=== PATIENT | male | born 1980 | race African-American/Black ===

== ENCOUNTER 2019-09-06 16:44 | Emergency (ER) | payer BC ==
[~2019-09-06 16:44] MED LIST: CIPRO HC AS; FLEXERIL OR; LORTAB5 OR; MOTRIN400 MG PO; NO HOME MEDS; ULTRAM50 M1 PO
[2019-09-06] MEDS ORDERED: BACTRIM DS1 TAB PO (18:11)
[2019-09-06 18:20] VITALS: BP 131/83
== END 2019-09-06 18:20 | disposition home or self-care (01) | DRG 603 ==
LOC: ED 16:44
DX: L03.116 Cellulitis of left lower limb (principal)

== ENCOUNTER 2019-09-11 11:07 | Inpatient (IN) | payer BC ==
[~2019-09-11] VITALS: Ht 195.6 cm; Wt 231.0 kg
[~2019-09-11 11:07] MED LIST changes: +BACTRIM DS1 TAB PO
--- NOTE | 2019-09-11 11:15 | NUR ---
AMBULATED TO ROOM WITH STEADY GAIT FOR BEDSIDE TRIAGE
--- NOTE | 2019-09-11 11:34 | NUR ---
MD INTO SEE PATIENT PLAN OF CARE DISCUSSED INCLUDING PROBABLE ADMISSION PT VERBALIZES UNDERSTANDING AND AGREEANCE
[2019-09-11 12:15] LABS: HEMATOCRIT 46.5 % (39.0-50.0); HEMOGLOBIN 15.2 g/dl (14.0-18.0); IMMATURE GRANULOCYTES 0.3 % (0.0-5.0); MEAN CELL VOLUME 88.6 fL CALC (80.0-100.0); MEAN CORPUSCULAR HGB CONC 32.7 g/dL CAL (32.0-36.0); NEUT# 3.74 thou/uL (1.82-7.42); RED BLOOD COUNT 5.25 mill/uL (4.70-6.10); RED CELL DISTRI WIDTH 13.5 % (11.5-15.5)
--- NOTE | 2019-09-11 12:30 | NUR ---
PT RESTING ON STRETCHER; NO S/S OF DISTRESS NOTED; VSS; PT ADVISED OF CONTINUED WAIT TIME; WILL CONTINUE TO MONITOR
[2019-09-11 12:34] LABS: ANION GAP 15 (6-22 (CALC)); BUN 15 mg/dL (9-20); BUN/CREATININE RATIO 10 (12-20 (CALC)); CARBON DIOXIDE 23 mmol/l (22-30); CHLORIDE 103 mmol/l (95-108); CREATININE 1.5 mg/dL (0.7-1.3); GFR 53 ML/MIN (>=60 (CALC)); GFR FOR AFR.AMER. > 60 ML/MIN (>=60 (CALC)); POTASSIUM 4.5 mmol/l (3.5-5.1); SODIUM 137 mmol/l (137-146)
--- NOTE | 2019-09-11 13:19 | NUR ---
DR TAYLOR AT [facility] TO DISCUSS POC AND PLAN TO ADMIT
--- NOTE | 2019-09-11 14:00 | NUR ---
PT RESTING ON STRETCHER; NO S/S OF DISTRESS NOTED; VSS; ADVISED OF CONTINUED WAIT TIME; WILL CONTINUE TO MONITOR
--- NOTE | 2019-09-11 14:35 | NUR ---
PT ARRIVED TO UNIT VIA WHEELCHAIR WITH ER STAFF; AMBULATED TO BED WITH STEADY GAIT. ALERT AND ORIENTED. DENIES PAIN; REPORTS THAT MEDICATION GIVEN IN ED WAS EFFECTIVE FOR PAIN. LEFT CALF REDDENED WITH SWELLING, WARMTH, AND FIRMNESS. GOOD PEDAL PULSES. RESPIRATIONS EVEN AND UNLABORED ON ROOM AIR. VSS. AFEBRILE. VANCO INFUSING UPON ARRIVAL; IV SITE APPEARS HEALTHY TO LAC. ORIENTED TO ROOM AND CALL LIGHT SYSTEM. PLAN OF CARE DISCUSSED. PT ENCOURAGED TO VERBALIZE CONCERNS. STATES UNDERSTANDING. SAFETY MEASURES IN PLACE. CALL LIGHT WITHIN REACH.
--- NOTE | 2019-09-11 14:35 | NUR ---
Admission Note Report Given to: CUAUHTEMOC COLLIER Transported by: X Wheelchair Stretcher Transported with: X Nurse Transporter X Patent IV O2 Applications Intern Location: ICU X MS2
[2019-09-11 14:45] VITALS: BP 127/82
[2019-09-11 15:03] LABS: URINE BILIRUBIN - DIPSTICK NEGATIVE (NEGATIVE); URINE BLOOD DIPSTICK NEGATIVE (NEGATIVE); URINE COLOR YELLOW; URINE GLUCOSE - DIPSTICK NEGATIVE (NEGATIVE); URINE KETONE TRACE mg/dL (NEGATIVE); URINE LEUK ESTERASE NEGATIVE (NEGATIVE); URINE NITRITE - DIPSTICK NEGATIVE (Negative); URINE PH 5.5 (4.5-8.0); URINE PROTEIN - DIPSTICK TRACE mg/dL (NEG-TRACE); URINE SPECIFIC GRAVITY >=1.030
--- NOTE | 2019-09-11 16:17 | NUR ---
S: SAUD HOLLAND is a 38 M who presents with LEFT LEG CELLULITIS. He has a history of LEFT LEG REDNESS. All medications in patient's chart were reviewed. O: VS: BP 127/82, P 70, RR 20,T 97.2 W 230kg, HT 77IN, Scr= 1.5 ,CrCl= 100ml/min A: Blood culture is pending P: Patient is on UNASYN 3GRAMS Q6H Vancomycin ordered for pharmacy to dose. Start Vancomycin 1500MG IV Q8H. Vancomycin trough is drawn before the 4th dose on 09/12/19 @2130. Vancomycin goal trough is between 10-15 mcg/ml. Pharmacy will follow and or advise on antibiotics use as needed. NOA ALBARRAN PHARMD
--- NOTE | 2019-09-11 17:17 | NUR ---
PT RESTING IN BED SEMI FOWLERS WATCHING TV; ALERT AND ORIENTED. IV FLUIDS INFUSING WITHOUT DIFFICULTY; IV SITE APPEARS HEALTHY. NO REQUESTS OR CONCERNS AT THIS TIME.
[2019-09-11 18:32] VITALS: BP 119/62
--- NOTE | 2019-09-11 19:30 | NUR ---
PT. SITTING UP IN BED WITH NO DISTRESS NOTED; DENIES NEEDS/PAIN. LLE WITH REDNESS AND SWELLING NOTED. PEDAL PULSES BILATERALLY PRESENT. CIRCUMFERENCE OF CALF 62CM; WILL CONTINUE TO MONITOR. ASSESSMENT COMPLETED. IV SITE PATENT AND INFUSING ORDERED IVF WELL. UPDATED ON POC AND VERBALIZES UNDERSTANDING. ENCOURAGED TO CALL FOR ANY NEEDS. CALL LIGHT IS IN REACH.
--- NOTE | 2019-09-11 21:08 | NUR ---
PT. SITTING UP IN THE RECLINER WITH NO DISTRESS NOTED. DENIES NEEDS/PAIN. ICE CHIPS PROVIDED. SCHEDULED LOVENOX GIVEN.
--- NOTE | 2019-09-12 00:08 | NUR ---
PT. RESTING IN BED WITH NO DISTRESS NOTED; DENIES NEEDS/PAIN. IV SITE REMAINS PATENT AND SCHED ANTIBIOTIC HUNG. PROVIDED WITH EXTRA PILLOW. ENCOURAGED TO CALL FOR ANY NEEDS.
[2019-09-12 03:58] VITALS: BP 125/70
--- NOTE | 2019-09-12 04:00 | NUR ---
RESTING IN BED WITH NO DISTRESS NOTED. RESP. EVEN AND UNLABORED. CALL LIGHT IS IN REACH.
--- NOTE | 2019-09-12 05:16 | NUR ---
sched meds given. denies needs/pain. call light is in reach.
[2019-09-12 06:02] LABS: MEAN CELL VOLUME 90.3 fL CALC (80.0-100.0); MEAN CORPUSCULAR HGB 28.7 pG CALC (26.0-32.0); MEAN CORPUSCULAR HGB CONC 31.8 g/dL CAL (32.0-36.0); RED BLOOD COUNT 4.42 mill/uL (4.70-6.10); RED CELL DISTRI WIDTH 13.4 % (11.5-15.5)
[2019-09-12 06:17] LABS: CHOLESTEROL HDL RATIO 2.8 (<4.4 (CALC)); MAGNESIUM 2.1 mg/dL (1.6-2.3)
[2019-09-12 06:18] LABS: ALBUMIN 3.3 g/dL (3.2-5.0); ALKALINE PHOSPHATASE 45 u/l (38-126); ANION GAP 8 (6-22 (CALC)); BILIRUBIN, TOTAL 0.6 mg/dL (0.0-1.4); BUN 16 mg/dL (9-20); BUN/CREATININE RATIO 12 (12-20 (CALC)); CARBON DIOXIDE 27 mmol/l (22-30); CHLORIDE 106 mmol/l (95-108); CREATININE 1.4 mg/dL (0.7-1.3); GFR 57 ML/MIN (>=60 (CALC)); GFR FOR AFR.AMER. > 60 ML/MIN (>=60 (CALC)); SGOT/AST 14 u/l (17-59); SODIUM 137 mmol/l (137-146); TOTAL PROTEIN 6.6 g/dL (6.3-8.2)
[2019-09-12 06:20] LABS: HEMATOCRIT 39.9 % (39.0-50.0); HEMOGLOBIN 12.7 g/dl (14.0-18.0)
--- NOTE | 2019-09-12 07:15 | NUR ---
CHNAGE OF SHIFT REPORT RECEIVED FROM CUAUHTEMOC VIEIRA. PT SITTING UP IN BED. PT DENIES ANT NEW CONCERNS
--- NOTE | 2019-09-12 08:00 | NUR ---
PT REQUESTING A SHOWER. PT DISCONECTED FROM IV. IV SITE COVER PLACED ON. PT IS ABLE TO MAKE NEEDS KNOWN. PT DENIES ANY NEW CONCERNS. CALL LIGHT WITHIN EASY REACH. CAFE OR RESTAURANT MANAGER WILL CONTIUE TO MONITOR
[2019-09-12 08:06] VITALS: BP 125/79
--- NOTE | 2019-09-12 12:00 | NUR ---
PT CONTINUES ON ANTIBIOTIC FOR CELULITIS. SAMPLER FIRST WILL CONTINUE TO ROSALINDA
[2019-09-12 16:00] VITALS: BP 127/79
--- NOTE | 2019-09-12 16:11 | NUR ---
PT WAS GIVEN MOTRIN FOR COMPLAINT OF PAIN IN CALF. WEIGHTS AND MEASURES SEALER WILL CONTINUE TO MONITOR
[2019-09-12 18:45] VITALS: BP 148/89
--- NOTE | 2019-09-12 20:05 | NUR ---
ASSESSMENT COMPLETED. UPDATED WITH POC; VERBALIZES UNDERSTANDING. DENIES PAIN AT THIS TIME. CIRCUMFERENCE OF LEFT CALF CELLULITIS MEASURING 68CM AND REDNESS AND FIRMNESS NOTED. PEDAL PULSES PRESENT AND STRONG. IV SITE PATENT AND INFUSING ORDERED IVF WELL. ENCOURAGED TO CALL FOR ANY NEEDS. CALL LIGHT IS IN REACH. WILL CONTINUE TO MONITOR.
--- NOTE | 2019-09-12 22:51 | NUR ---
AWAITING VANCO TROUGH RESULTS MEDI-TECH WAS DOWN.
--- NOTE | 2019-09-12 23:10 | NUR ---
VANCOMYCIN HUNG; DENIES NEEDS/PAIN. ENCOURAGED TO CALL FOR ANY NEEDS. CALL LIGHT IS IN REACH.
[2019-09-13 03:49] VITALS: BP 126/80
--- NOTE | 2019-09-13 03:50 | NUR ---
RESTING IN BED WITH NO DISTRESS NOTED; DENIES NEEDS. CALL LIGHT IS IN REACH.
--- NOTE | 2019-09-13 05:35 | NUR ---
PT. RESTING IN BED WITH NO DISTRESS NOTED; DENIES NEEDS/PAIN. PT. REPORTS STILL NO BM AND OFFERED A LAXATIVE AND DECLINES. CALL LIGHT IS IN REACH.
--- NOTE | 2019-09-13 07:15 | NUR ---
CHANGE OF SHIFT REPORT RECEIVED FROM CUAUHTEMOC VIEIRA. PT IN SEMI-PETTIT POSITION. PT DENIES ANY DISCOMFORT. TEMP AT 99.0(TEMPORAL). ROOM IS WARM AND PT HAD BLANKETS ON. AIR CONDITIONER TURNED DOWN. DRUM PRINTER WILL CONTINUE TO MONITOR
[2019-09-13 07:29] VITALS: BP 131/78
--- NOTE | 2019-09-13 07:44 | NUR ---
1 BOTTLE OF 2 SETS GROWING GRAM POSITIVE COCCI. PT IS CURRENTLY RECEIVING UNASYN AND VANCOMYCIN. NO CHANGES RECOMMENDED UNTIL FINAL C+S COMPLETE
--- NOTE | 2019-09-13 12:38 | NUR ---
PT'S IV LEAKING. IV INSERTION ATTEMPTED X 2. ENGINEERING TEST SPECIALIST WILL REATTEMPT WHEN VEIN FINDER AVAILABLE.
--- NOTE | 2019-09-13 12:44 | NUR ---
Vancomycin ordered for pharmacy to dose. PT is a 38 yr old M who presentS with cellulitis of the left leg. PT also on Unasyn 3gm IV Q6H. Pt is receiving vancomycin 1,500 mg IV Q8H with goal trough of 10-15 mcg/ml. Trough on 09/12/19 @ 2200: 13mcg/mL. Allergies: NKDA Continue vancomycin 1,500 mg IV Q8H. Draw trough 30 minutes prior to 4th dose on 09/13/19 at 2130. Pharmacy will continue to follow.
--- NOTE | 2019-09-13 14:40 | NUR ---
NE IV #20 ON RAC. ANTIBIOTICS RUNNING AT THIS TIME
--- NOTE | 2019-09-13 15:54 | NUR ---
PT RESTING COMFORTABLY IN BED. PT CONTINUES ON ANTIBITICS FOR LEFT CALF CELULITIS. BUSINESS WRITER WILL CONTINUE TO MONITOR
--- NOTE | 2019-09-13 15:57 | NUR ---
CALLED DR. PEREIRA REGARDING CONSULTATION ON THIS PT.
[2019-09-13 16:20] VITALS: BP 142/85
[2019-09-13 18:56] VITALS: BP 150/90
--- NOTE | 2019-09-13 19:47 | NUR ---
REPORT FROM DONNA POSADAS. PT RESTING IN BED. NO APPARENT DISTRESS NOTED. PT DENIES ANY PAIN OR DISCOMFORT AT THIS TIME. LEFT LEG ELEVATED ON PILLOWS. LEFT LEG WARM TO TOUCH WITH EDEMA NOTED. DISCUSSED POC. PT VERBALIZED UNDERSTANDING. CALL LIGHT WITHIN REACH. WILL CONTINUE TO MONITOR.
--- NOTE | 2019-09-13 22:40 | NUR ---
VANCO TROUGH RESULTS BACK AT 14, VANCO STARTED. SLEEPING PILL ADMINISTERED UPON REQUEST. PT DENIES ANY CURRENT WANTS OR NEEDS. PT SITTING UP EATING CEREAL OUT OF BAG. CALL LIGHT WITHIN REACH. WILL CONTINUE TO MONITOR.
--- NOTE | 2019-09-14 02:31 | NUR ---
PT RESTING IN BED WITH EYES CLOSED. NO APPARENT DISTRESS NOTED. LLE ELEVATED ON PILLOWS. CALL LIGHT WITHIN REACH. WILL CONTINUE TO MONITOR.
[2019-09-14 03:43] VITALS: BP 133/84
[2019-09-14 08:00] VITALS: BP 134/80
--- NOTE | 2019-09-14 09:00 | NUR ---
PT IS AWAKE, ALERT, ORIENTED X 3, AMBULATORY. PT WITH SWELLING NOTED TO LEFT CALF AREA, NOTED HARD TEXTURE. PT IS AMBULATORY WITHOUT DIFFICULTY IN SPITE OF BEING 500 POUNDS. LUNGS CLEAR, RA.
--- NOTE | 2019-09-14 13:00 | NUR ---
PT SEEN BY DR PEREIRA THIS MORNING, WILL HAVE I&D LEFT CALF TOMORROW. PT ABLE TO AMBULATE IN HALLWAY WITHOUT DIFFICULTY.
--- NOTE | 2019-09-14 15:25 | NUR ---
S: SAUD HOLLAND is a 38 M who presents with CELLULITIS He has a history of REDNESS LEFT LEG,DM2. All medications in patient's chart were reviewed. O: VS: BP 134/80 , P 74, RR18,T 97.3 W 231kg, HT 77IN, Scr= 1.4,CrCl= >100ml/min A: Blood culture is pending Urine culture is pending P: Patient is on UNASYN 3 GRAMS. Vancomycin ordered for pharmacy to dose. Start Vancomycin 1500MG Q8H. Vancomycin trough is drawn before the dose on 09/16/19 @0530 Vancomycin goal trough is between 15-20 mcg/ml. Pharmacy will follow and or advise on antibiotics use as needed. NOA SHAHRMD
[2019-09-14 16:00] VITALS: BP 132/76
--- NOTE | 2019-09-14 19:05 | NUR ---
REPORT FROM ANTONY POSADAS. PT SITTING UP IN BED WATCHING TV. NO APPARENT DISTRESS NOTED. LLE ELEVATED ON PILLOWS. PT DENIES ANY PAIN OR DISCOMFORT. DISCUSSED POC AND NPO AFTER MIDNIGHT. PT VERBALIZED UNDERSTANDING. CUP OF ICE PROVIDED. CALL LIGHT WITHIN REACH. WILL CONTINUE TO MONITOR.
[2019-09-14 19:23] VITALS: BP 140/75
--- NOTE | 2019-09-14 21:54 | NUR ---
PT MEDICATED ORDERED. SLEEPING PILL ADMINISTERED UPON REQUEST. PT DENIES ANY OTHER WANTS OR NEEDS. CALL LIGHT WITHIN REACH. WILL CONTINUE TO MONTIOR.
[2019-09-15] VITALS (12 sets, daily range): BP systolic 122–172; BP diastolic 69–102
--- NOTE | 2019-09-15 01:14 | NUR ---
PT RESTING IN BED WITH EYES CLOSED. NO APPARENT DISTRESS NOTED. CALL LIGHT WITHIN REACH. WILL CONTINUE TO MONITOR.
--- NOTE | 2019-09-15 05:26 | NUR ---
PT RESTING IN BED WITH EYES CLOSED. NO APPARENT DISTRESS NOTED. CALL LIGHT WITHIN REACH. WILL CONTINUE TO MONITOR.
--- NOTE | 2019-09-15 09:00 | NUR ---
PT SEEN AWAKE, ALERT, ORIENTED X 3. LEFT CALF WITH TENDERNESS PER AREA OF SWELLING. PT HAS BEEN NPO [place], WILL HAVE I&D WITH DR PEREIRA THIS MORNING. NO COMPLAINT OF PAIN, NO SHORTNESS OF BREATH.
--- NOTE | 2019-09-15 13:00 | NUR ---
PT HAS RETURNED FROM SURGERY TO LEFT CALF. EASTON BANDAGE COVERS SITE. PT PROVIDED PAIN MED ORDERED, MORE COMFORTABLE NOW.
--- NOTE | 2019-09-15 18:34 | NUR ---
DRESSING CHANGE WAS DONE TO LEFT CALF, PT WITH EXTREME DISCOMFORT. WOUND WAS REPACKED, EASTON BANDAGE APPLIED, PT MUCH BETTER NOW THAT IT IS OVER. PT WILL ADVISE WHEN HE WANTS PAIN MED.
--- NOTE | 2019-09-15 19:10 | NUR ---
REPORT FROM ANTONY POSADAS. PT SITTING UP IN BED WATCHING TV. NO APPARENT DISTRESS NOTED. LLE ELEVATED ON PILLOWS. C/O PAIN 4-10 IN LLE. EASTON BANDAGE IN PLACE, CDI. DISCUSSED POC AND DRESSING CHANGES. PT VERBALIZED UNDERSTANDING. WILL MEDICATE ORDERED. CALL LIGHT WITHIN REACH. WILL CONTINUE TO MONITOR.
--- NOTE | 2019-09-15 21:55 | NUR ---
WOUND CARE COMPLETED ORDERED, PT TOLERATED WELL. LLE ELEVATED ON PILLOWS. CALL LIGHT WITHIN REACH. WILL CONTINUE TO MONITOR.
--- NOTE | 2019-09-16 00:36 | NUR ---
PT RESTING IN BED WITH EYES CLOSED. NO APPARENT DISTRESS NOTED. CALL LIGHT WITHIN REACH. WILL CONTINUE TO MONITOR.
[2019-09-16 03:20] VITALS: BP 122/45
--- NOTE | 2019-09-16 03:59 | NUR ---
PT RESTING IN BED WITH EYES CLOSED. NO APPARENT DISTRESS NOTED. CALL LIGHT WITHIN REACH. WILL CONTINUE TO MONITOR.
[2019-09-16 05:51] LABS: HEMATOCRIT 36.5 % (39.0-50.0); HEMOGLOBIN 11.6 g/dl (14.0-18.0); IMMATURE GRANULOCYTES 0.2 % (0.0-5.0); MEAN CELL VOLUME 90.3 fL CALC (80.0-100.0); MEAN CORPUSCULAR HGB 28.7 pG CALC (26.0-32.0); MEAN CORPUSCULAR HGB CONC 31.8 g/dL CAL (32.0-36.0); NEUT# 2.61 thou/uL (1.82-7.42); RED BLOOD COUNT 4.04 mill/uL (4.70-6.10); RED CELL DISTRI WIDTH 13.2 % (11.5-15.5)
[2019-09-16 06:10] LABS: ALBUMIN 2.9 g/dL (3.2-5.0); ALKALINE PHOSPHATASE 45 u/l (38-126); ANION GAP 9 (6-22 (CALC)); BUN 10 mg/dL (9-20); BUN/CREATININE RATIO 11 (12-20 (CALC)); CARBON DIOXIDE 27 mmol/l (22-30); CHLORIDE 105 mmol/l (95-108); CREATININE 0.9 mg/dL (0.7-1.3); GFR > 60 ML/MIN (>=60 (CALC)); GFR FOR AFR.AMER. > 60 ML/MIN (>=60 (CALC)); POTASSIUM 4.2 mmol/l (3.5-5.1); SGOT/AST 14 u/l (17-59); SODIUM 137 mmol/l (137-146); TOTAL PROTEIN 5.9 g/dL (6.3-8.2)
[2019-09-16 06:13] LABS: BILIRUBIN, TOTAL 0.3 mg/dL (0.0-1.4)
[2019-09-16 08:00] VITALS: BP 119/57
--- NOTE | 2019-09-16 09:00 | NUR ---
PT AWAKE, ALERT, ORIENTED, RESTS IN THE BED IN NO DISTRESS. PT WITH IV INFILTRATION, TO RESTART.
--- NOTE | 2019-09-16 12:24 | NUR ---
IV RESTARTED TO RIGHT HAND. DRESSING CHANGED, PT TOLERATED WELL. PT MEDICATED FOR PAIN WITH MORPHINE.
--- NOTE | 2019-09-16 13:46 | NUR ---
S: SAUD HOLLAND is a 38 M who presents with LEFT LEG CELLULITIS. Patient is on UNASYN 3 GRAMS Q6H . Vancomycin ordered for pharmacy to dose. TROUGH IS 14 ON 09/16/19 AT 0530 CONTINUE Vancomycin 1500MG IV Q8H. Vancomycin trough is drawn before the 4th dose on 09/20/19 AT 0530. Vancomycin goal trough is between <10-15 mcg/ml>. Pharmacy will follow and or advise on antibiotics use as needed. NOA ALBARRAN PHARMD
[2019-09-16 15:00] VITALS: BP 137/68
--- NOTE | 2019-09-16 18:08 | NUR ---
DRESSING CHANGED FOR SECOND TIME THIS SHIFT, SEEN TO HAVE VERY LITTLE DRAINAGE ON THE ABD. PT TOLERATED WELL, STATES PAIN LEVEL LESS DURING THIS CHANGE.
[2019-09-16 18:55] VITALS: BP 148/85
--- NOTE | 2019-09-16 19:10 | NUR ---
REPORT FROM ANTONY POSADAS. PT SITTING UP IN BED WATCHING TV. NO APPARENT DISTRESS NOTED. LLE ELEVATED ON PILLOWS. DENIES ANY PAIN OR DISCOMFORT. EASTON BANDAGE IN PLACE, CDI. DISCUSSED POC AND DRESSING CHANGES. PT VERBALIZED UNDERSTANDING. CALL LIGHT WITHIN REACH. WILL CONTINUE TO MONITOR.
--- NOTE | 2019-09-16 23:55 | NUR ---
WOUND CARE COMPLETED ORDERED. PT TOLATERATED WELL. SMALL AMOUNT OF SEROUS DRAINAGE NOTED TO ABD PAD. LLE ELEVATED ON PILLOWS.
--- NOTE | 2019-09-17 03:02 | NUR ---
PT RESTING IN BED WITH EYES CLOSED. NO APPARENT DISTRESS NOTED. CALL LIGHT WITHIN REACH. WILL CONTINUE TO MONITOR.
[2019-09-17 05:15] VITALS: BP 140/80
--- NOTE | 2019-09-17 07:15 | NUR ---
CHANGE OF SHIFT REPORT RECEIVED FROM SN MARII. PT SITTING UP IN BED. NO S/S OF DISTRESS
[2019-09-17 08:00] VITALS: BP 147/86
[2019-09-17] MEDS ORDERED: DOXYCYCL HYC100 MG PO (10:25)
[2019-09-17] MEDS ORDERED: XARELTO10 MG PO ×2 (10:26)
--- NOTE | 2019-09-17 10:44 | NUR ---
WOUND CARE YEN OUT PER ORDER. PT REFUSED PAIN MEDICATION. PT TOLERATED PROCEDURE WELL
--- NOTE | 2019-09-17 11:30 | NUR ---
Discharge instructions given. Patient verbalizes understanding of same. Discharged in good condition via Ambulatory to Home with family. All belongings sent with pt.
== END 2019-09-17 11:43 | disposition home or self-care (01) | DRG 253 ==
LOC: ED 11:07 → ED-I 13:11 → ED 13:26 → ED-I 13:27 → MS2 14:08
PROVIDERS: Family Medicine; Nurse Practitioner Family; ADMIT Internal Medicine; ATTEND Internal Medicine
PROC: 06CY0ZZ Extirpation of Matter from Lower Vein, Open Approach (ICD-10-PCS; principal; 2019-09-15)
DX: I80.02 Phlebitis and thrombophlebitis of superficial vessels of left lower extremity (principal); L03.116 Cellulitis of left lower limb; Z68.44 Body mass index [BMI] 60.0-69.9, adult; E66.9 Obesity, unspecified; I83.812 Varicose veins of left lower extremity with pain; I83.892 Varicose veins of left lower extremity with other complications; Z98.84 Bariatric surgery status; Z11.59 Encounter for screening for other viral diseases
CPT/HCPCS: J1650; J3370

== ENCOUNTER 2020-01-16 11:34 | Emergency (ER) | payer OTHER, BC ==
[~2020-01-16] VITALS: Ht 195.6 cm; Wt 204.5 kg
[~2020-01-16 11:34] MED LIST changes: +DOXYCYCL HYC100 MG PO; +XARELTO10 MG PO
[2020-01-16 12:22] LABS: HEMATOCRIT 41.9 % (39.0-50.0); HEMOGLOBIN 13.1 g/dl (14.0-18.0); IMMATURE GRANULOCYTES 0.2 % (0.0-5.0); MEAN CELL VOLUME 88.8 fL CALC (80.0-100.0); MEAN CORPUSCULAR HGB 27.8 pG CALC (26.0-32.0); MEAN CORPUSCULAR HGB CONC 31.3 g/dL CAL (32.0-36.0); NEUT# 3.19 thou/uL (1.82-7.42); RED BLOOD COUNT 4.72 mill/uL (4.70-6.10); RED CELL DISTRI WIDTH 13.9 % (11.5-15.5)
[2020-01-16 12:34] LABS: ALKALINE PHOSPHATASE 49 u/l (38-126); ANION GAP 8 (6-22 (CALC)); BUN 11 mg/dL (9-20); BUN/CREATININE RATIO 11 (12-20 (CALC)); CARBON DIOXIDE 24 mmol/l (22-30); CHLORIDE 105 mmol/l (95-108); GFR > 60 ML/MIN (>=60 (CALC)); GFR FOR AFR.AMER. > 60 ML/MIN (>=60 (CALC)); POTASSIUM 4.2 mmol/l (3.5-5.1); SODIUM 133 mmol/l (137-146); TOTAL PROTEIN 6.8 g/dL (6.3-8.2)
[2020-01-16 12:35] LABS: ALBUMIN 3.7 g/dL (3.2-5.0); BILIRUBIN, TOTAL 0.7 mg/dL (0.0-1.4); SGOT/AST 25 u/l (17-59)
[2020-01-16 12:42] LABS: PROTHROMBIN TIME 9.9 SECONDS (9.0-12.5)
[2020-01-16 13:20] VITALS: BP 138/75
== END 2020-01-16 13:20 | disposition short-term general hospital (02) | DRG 313 ==
LOC: ED 11:34
PROVIDERS: Family Medicine
DX: R07.9 Chest pain, unspecified (principal); F17.200 Nicotine dependence, unspecified, uncomplicated; Z20.828 Contact with and (suspected) exposure to other viral communicable diseases
CPT/HCPCS: J1644